=== PATIENT | female | born 1985 | race Caucasian/White ===

== ENCOUNTER 2018-02-13 16:01 | Emergency (ER) | payer MEDICAID, OTHER ==
[~2018-02-13] VITALS: Ht 162.6 cm; Wt 61.4 kg
[2018-02-13] MEDS ORDERED: PERTUSS(ACELL),DIPH,TET VAC/PF 0.5 ML VIAL IM ONE (17:00)
[2018-02-13] MEDS ORDERED: AMOX TR/POT CLAV 875 MG/125 MG TABLET PO ONE (17:00)
[2018-02-13 17:03] VITALS: BP 119/79
== END 2018-02-13 17:43 | disposition home or self-care (01) ==
LOC: EMS 16:03
DX: S71.152A Open bite, left thigh, initial encounter (principal); S31.159A Open bite of abdominal wall, unspecified quadrant without penetration into peritoneal cavity, initial encounter; F17.210 Nicotine dependence, cigarettes, uncomplicated; F12.10 Cannabis abuse, uncomplicated; W54.0XXA Bitten by dog, initial encounter; Y93.89 Activity, other specified; Y92.89 Other specified places as the place of occurrence of the external cause; Y99.8 Other external cause status
CPT/HCPCS: 90471; 90715; 99283

== ENCOUNTER 2021-01-14 08:16 | Emergency (ER) | payer OTHER ==
[~2021-01-14] VITALS: Ht 162.6 cm; Wt 56.8 kg
[2021-01-14] MEDS ORDERED: LIDOCAINE 1% 10 ML VIAL PERC ONE (08:45)
[2021-01-14] MEDS ORDERED: BACITRACIN 0.9 GM PACKET OINTMENT TP ONE (08:45)
[2021-01-14 08:46] VITALS: BP 104/63
== END 2021-01-14 10:20 | disposition home or self-care (01) ==
LOC: EMS 08:18
DX: S01.81XA Laceration without foreign body of other part of head, initial encounter (principal); F17.210 Nicotine dependence, cigarettes, uncomplicated; F12.90 Cannabis use, unspecified, uncomplicated; W19.XXXA Unspecified fall, initial encounter; Y93.89 Activity, other specified; Y92.89 Other specified places as the place of occurrence of the external cause; Y99.8 Other external cause status
CPT/HCPCS: 12011; 99282; J3490; 12001